=== PATIENT | female | born 1945 | race Caucasian/White ===

== ENCOUNTER 2018-03-21 14:57 | Outpatient (CLI) | payer MEDICARE ==
--- NOTE | 2018-03-21 15:58 | RAD ---
CHEST TWO VIEWS: History: Dyspnea. FINDINGS: Cardiac silhouette is unremarkable. Pulmonary vasculature upper limits of normal with mild wide scatt ered reticular nodular interstitial prominence. Linear scarring at the left anterior lung base. Media stinum is midline with aortic calcification. No lobar consolidation, pleural fluid, or pneumothorax a re evident. Degenerative changes of the thoracic spine. IMPRESSION: 1. Borderline pulmonary vascular congestion. No florid edema. 2. Atherosclerosis. POS: SY
== END 2018-03-21 14:58 | disposition home or self-care (01) ==
LOC: MADRAD 14:57
PROVIDERS: ATTEND Physician Assistant
DX: J45.909 Unspecified asthma, uncomplicated (principal); I70.0 Atherosclerosis of aorta; R09.89 Other specified symptoms and signs involving the circulatory and respiratory systems
CPT/HCPCS: 71046

== ENCOUNTER 2019-11-19 09:00 | Emergency (ER) | payer MEDICARE, OTHER ==
[2019-11-19 10:01] LABS: Bilirubin Small (Negative); Blood, Urine Negative (Negative); Clarity Clear (Clear); Glucose, Urine (Dipstick) Negative (Negative); Leukocyte Small (Negative); Nitrite Positive (Negative); Protein, Urine (Dipstick) 30 mg/dL (Neg-Trace); Urobilinogen 0.2 mg/dL (Less than 2)
[2019-11-19 10:06] LABS: RBC/HPF 0-3 HPF (0-3); WBC/HPF 21-50 HPF (0-3)
[2019-11-19 10:07] LABS: Bacteria/HPF 1+ HPF (None Seen)
[2019-11-19 10:19] LABS: #Basophils 0.1 thou/uL (0.0-0.2); #Eosinphils 0.3 thou/uL (0.0-0.7); #Lymphocytes 1.5 thou/uL (1.20-3.40); #Monocytes 0.6 thou/uL (0.11-0.59); #Neutrophils 6.6 thou/uL (1.40-6.50); %Basophils 0.7 % (0.0-1.0); %Lymphocytes 16.3 % (21.0-51.0); %Monocytes 6.5 % (0.0-10.0); %Neutrophils 73.5 % (42.0-75.0); Hemoglobin 10.9 g/dL (12.0-16.0); Mean Corpuscular HGB CONC 30.1 g/dL (32.0-36.0); Mean Corpuscular Hemoglobin 26.5 pg (27.0-31.0); Mean Corpuscular Volume 88.1 fL (78.0-98.0); Mean Platelet Volume 8.9 fL (7.4-10.4); Platelet Count 206 thou/uL (130-400); RBC Distribution Width 13.7 % (11.5-14.5)
[2019-11-19] MEDS ORDERED: Aspirin 325 MG TAB ONE (10:21)
[2019-11-19 10:26] LABS: INR-International Normal Ratio 0.9; Prothrombin Time 12.5 sec (12.0-14.7)
--- NOTE | 2019-11-19 10:36 | RAD ---
RADIOGRAPH CHEST 1 VIEW: DATE: 11/19/2019 TIME: 10:36 AM HISTORY: 74-year-old female with dyspnea "asthma" COMPARISON: 03/21/2018 FINDINGS: Unlike on the prior study, the lung bases, especially the left lower lung zone, are poorly visualized because of overlying soft tissues. No other change detected. No consolidation visualized elsewhere. Pulmonary venous engorgement again noted. Hyperinflation suggestive of COPD. No pneumothor ax. Atherosclerosis of thoracic aorta. Prominent interstitial markings diffusely. IMPRESSION: 1) emphysema. 2) pulmonary venous congestion
[2019-11-19 10:37] LABS: ALT (SGPT) 27 U/L (8-55); AST (SGOT) 24 U/L (5-34); Albumin 3.7 g/dL (3.4-4.8); Alkaline Phosphatase 114 U/L (40-110); Anion Gap 15 mmol/L (10-20); BUN (Urea Nitrogen) 20 mg/dL (9.8-20.1); Bilirubin, Total 0.4 mg/dL (0.2-1.2); Calc. Creatinine Clearance 0 mL/min (70-130); Calcium 9.8 mg/dL (7.8-10.44); Carbon Dioxide 25 mmol/L (23-31); Chloride 106 mmol/L (98-107); Estimated GFR-MDRD 57; Globulin 3.8 g/dL (2.4-3.5); Glucose 166 mg/dL (83-110); Potassium 4.4 mmol/L (3.5-5.1); Protein, Total 7.5 g/dL (6.0-8.3); Sodium 142 mmol/L (136-145)
[2019-11-19] MEDS ORDERED: Ondansetron PF 4 MG/2 ML Vial ONE (11:07)
[2019-11-19] MEDS ORDERED: Sulfameth/Trimethoprim DS 800-160mg TAB ONE (11:07)
[2019-11-19] MEDS ORDERED: Enoxaparin Sodium 60 MG/0.6 ML SYRINGE ONE (11:07)
[2019-11-19] MEDS ORDERED: Enoxaparin Sodium 80 MG/0.8 ML SYRINGE ONE (11:07)
== END 2019-11-19 11:30 | disposition short-term general hospital (02) ==
LOC: MADERS 09:00
DX: I21.4 Non-ST elevation (NSTEMI) myocardial infarction (principal); N39.0 Urinary tract infection, site not specified; I10 Essential (primary) hypertension; E11.9 Type 2 diabetes mellitus without complications; J45.909 Unspecified asthma, uncomplicated; F41.9 Anxiety disorder, unspecified; Z79.4 Long term (current) use of insulin; Z79.899 Other long term (current) drug therapy
CPT/HCPCS: 71045; 80053; 81003; 81015; 82553; 83880; 84484; 85025; 85610; 93005; 96372; 96374; J1650; J2405

== ENCOUNTER 2020-09-25 13:02 | Emergency (ER) | payer MEDICARE, OTHER ==
[~2020-09-25 13:02] MED LIST: Iopamidol 370 76% 125 ML VIAL FS ONE; Sodium Chloride 0.9% 100 ML BAG ONE
[2020-09-25 14:16] LABS: #Eosinphils 0.1 thou/uL (0.0-0.7); #Lymphocytes 0.8 thou/uL (1.20-3.40); #Monocytes 0.6 thou/uL (0.11-0.59); #Neutrophils 6.9 thou/uL (1.40-6.50); %Basophils 0.6 % (0.0-1.0); %Eosinophils 0.9 % (0.0-10.0); %Lymphocytes 9.5 % (21.0-51.0); %Monocytes 7.2 % (0.0-10.0); %Neutrophils 81.9 % (42.0-75.0); Mean Corpuscular HGB CONC 29.1 g/dL (32.0-36.0); Mean Corpuscular Hemoglobin 24.6 pg (27.0-31.0); Mean Corpuscular Volume 84.8 fL (78.0-98.0); Mean Platelet Volume 10.2 fL (7.4-10.4); Platelet Count 223 thou/uL (130-400); RBC Distribution Width 16.5 % (11.5-14.5); Red Blood Cell (RBC) Count 4.48 mill/uL (4.20-5.40); White Blood Cell (WBC) Count 8.4 thou/uL (4.8-10.8)
[2020-09-25 14:20] LABS: PTT 26.6 sec (22.9-36.1); Prothrombin Time 13.1 sec (12.0-14.7)
[2020-09-25 14:23] LABS: Anisocytosis SLIGHT = 6-15 cells (100X) (0-5/hpf); Platelet Morphology Comment Appears Adequate
[2020-09-25 14:26] LABS: ALT (SGPT) 31 U/L (8-55); AST (SGOT) 36 U/L (5-34); Albumin 3.6 g/dL (3.4-4.8); Alkaline Phosphatase 173 U/L (40-110); Anion Gap 18 mmol/L (10-20); BUN (Urea Nitrogen) 34 mg/dL (9.8-20.1); Bilirubin, Total 0.7 mg/dL (0.2-1.2); Calc. Creatinine Clearance 0 mL/min (70-130); Calcium 9.3 mg/dL (7.8-10.44); Carbon Dioxide 25 mmol/L (23-31); Chloride 103 mmol/L (98-107); Globulin 3.9 g/dL (2.4-3.5); Glucose 278 mg/dL (83-110); Potassium 5.1 mmol/L (3.5-5.1); Protein, Total 7.5 g/dL (5.8-8.1); Sodium 141 mmol/L (136-145)
[2020-09-25 14:27] LABS: D-Dimer Test 1.49 *mcg/mL (0.27-0.43)
[2020-09-25 14:45] LABS: CKMB 3.4 ng/mL (0-6.6)
[2020-09-25] MEDS ORDERED: Aspirin Chewable 81 MG TAB ONE (14:54)
[2020-09-25] MEDS ORDERED: Furosemide 40 MG/4 ML VIAL ONE (14:54)
[2020-09-25 16:30] LABS: Bilirubin Negative (Negative); Blood, Urine Negative (Negative); Glucose, Urine (Dipstick) Negative (Negative); Ketone, Urine Negative (Negative); Leukocyte Negative (Negative); Nitrite Negative (Negative); Protein, Urine (Dipstick) Trace mg/dL (Neg-Trace); Specific Gravity, Urine 1.015 (1.005-1.030); Urobilinogen 0.2 mg/dL (Less than 2)
[2020-09-25 16:39] LABS: Clarity Hazy (Clear)
[2020-09-25 17:01] LABS: Troponin I 0.028 ng/mL (< 0.028)
== END 2020-09-25 17:45 | disposition home or self-care (01) ==
LOC: MADERS 13:02
DX: I11.0 Hypertensive heart disease with heart failure (principal); I50.9 Heart failure, unspecified; R91.1 Solitary pulmonary nodule; E11.9 Type 2 diabetes mellitus without complications; Z79.4 Long term (current) use of insulin; E66.9 Obesity, unspecified; J45.909 Unspecified asthma, uncomplicated; Z79.899 Other long term (current) drug therapy
CPT/HCPCS: 71045; 71275; 80053; 81003; 82550; 82553; 83735; 83880; 84484; 85025; 85379; 85610; 85730; 93005; 96374; J1940; J3490; Q9967